=== PATIENT | female | born 1965 | race Caucasian/White ===

== ENCOUNTER 2020-06-22 00:31 | Emergency (ER) | payer OTHER, BC ==
[~2020-06-22] VITALS: Ht 165.1 cm; Wt 77.0 kg
[2020-06-22 01:10] LABS: CLARITY URINE CLEAR (CLEAR); COLOR URINE YELLOW (YELLOW); KETONES URINE NEGATIVE (NEGATIVE); LEUKOCYTE ESTERASE URINE TRACE (NEGATIVE); NITRITE URINE NEGATIVE (NEGATIVE); OCCULT BLOOD URINE NEGATIVE (NEGATIVE); PROTEIN URINE TRACE (NEGATIVE); SPECIFIC GRAVITY URINE 1.021 (1.005-1.030); UROBILINOGEN URINE 0.2 E.U./dL (0.2-1.0)
[2020-06-22] MEDS ORDERED: MORPHINE SULFATE 4 MG/ML CPJ (NOT FOR IM USE) IV STA (01:27)
[2020-06-22] MEDS ORDERED: ONDANSETRON HCL 4MG/2ML INJ IV STA (01:27)
[2020-06-22] MEDS ORDERED: MAGNESIUM/ALUMINUM HYDROXIDE/SIMETHICONE 30ML UDC PO STA (01:39)
[2020-06-22] MEDS ORDERED: DICYCLOMINE 10 MG/5 ML ORAL SYR PO STA (01:39)
[2020-06-22] MEDS ORDERED: VISCOUS LIDOCAINE 2% 15 ML UDC PO STA (01:39)
[2020-06-22 02:11] LABS: BASOPHILS % 0.4 % (0.0-2.0); EOSINOPHILS % 0.7 % (0.0-5.0); HEMATOCRIT. 40.5 % (36.0-48.0); HEMOGLOBIN. 13.7 g/dL (12.0-16.0); LYMPHOCYTES % 11.3 % (20.0-50.0); MEAN CORPUSCULAR HEMOGLOBIN 30.3 pg (28.0-32.0); MEAN CORPUSCULAR VOLUME 89.4 fL (81.0-99.0); MEAN PLATELET VOLUME 9.3 fl (7.4-10.4); MONOCYTES % 4.8 % (2.0-8.0); NEUTROPHILS % 82.8 % (40.0-76.0); PLATELET 203 x1000/uL (130-400); RED BLOOD CELL COUNT 4.53 mill/uL (4.2-5.4)
[2020-06-22 02:16] LABS: CHLORIDE 107 mEq/L (98-107)
[2020-06-22 02:19] LABS: HCG SCREEN NEGATIVE
[2020-06-22 02:20] LABS: ETHANOL BLOOD < 10 mg/dL
[2020-06-22 02:30] LABS: PROTHROMBIN TIME 10.8 sec (9.6-11.0)
[2020-06-22] MEDS ORDERED: SODIUM CHLORIDE 0.9% 500 ML IV ONE (03:15)
[2020-06-22 04:21] VITALS: BP 136/78
== END 2020-06-22 04:55 | disposition home or self-care (01) ==
LOC: ER 00:31
DX: R10.13 Epigastric pain (principal); Z98.51 Tubal ligation status
CPT/HCPCS: 36415; 71045; 80053; 80320; 81003; 81025; 83605; 83690; 84703; 85025; 85610; 86850; 86900; 86901; 93005; 96361; 96374; 96375; 99285; J2270; J2405; J7040; G0480